=== PATIENT | female | born 1945 | race Caucasian/White ===

== ENCOUNTER 2016-10-08 18:02 | Emergency (ER) | payer MEDICARE ==
--- NOTE | 2016-10-08 19:51 | ED ---
Lower Extremity - HPI Summary HPI Summary: Patient presents with right calf pain for the past two days. She denies known trauma. No history of blood clots. No SOB, CP, warmth or swelling. The calf is tender to the touch. - History of Current Complaint Chief Complaint: EDExtremityLower Stated Complaint: RIGHT CALF PAIN Time Seen by Provider: 10/08/16 19:29 Hx Obtained From: Patient Mechanism Of Injury: Unknown Onset of Pain: Days - 2 Onset/Duration: Days - 2 Severity Initially: Mild Severity Currently: Mild Pain Intensity: 1 Timing: Intermittent - variable Location: Is Discrete @ - right calf Character Of Pain: Aching, Stiffness Associated Signs And Symptoms: Positive: Negative Aggravating Factor(s): Standing, Movement Alleviating Factor(s): Nothing Able to Bear Weight: Yes - with mild discomfort - Allergies/Home Medications Allergies/Adverse Reactions: Allergies Allergy/AdvReac Type Severity Reaction Status Date / Time No Known Allergies Allergy Verified 10/08/16 19:36 PMH/Surg Hx/FS Hx/Imm Hx Previously Healthy: Yes Musculoskeletal History: Denies: Hx Rheumatoid Arthritis, Hx Osteoporosis - Cancer History Hx Chemotherapy: No Hx Radiation Therapy: No - Surgical History Surgery Procedure, Year, and Place: 1969 left breast surgeries, 89 right breast , kidney stones, Infectious Disease History: No Infectious Disease History: Denies: Traveled Outside the [place] in Last 30 Days - Social History Occupation: Employed Full-time Lives: With Family Alcohol Use: None Substance Use Type: Reports: None Smoking Status (MU): Never Smoked Tobacco Review of Systems Negative: Fever, Chills Positive: Myalgia. Negative: Edema Negative: Bruising Negative: Paresthesia, Numbness All Other Systems Reviewed And Are Negative: Yes Physical Exam Triage Information Reviewed: Yes Vital Signs On Initial Exam: Initial Vitals Temp Pulse Resp BP Pulse Ox 98.5 F 64 16 189/65 97 10/08/16 18:27 10/08/16 18:27 10/08/16 18:27 10/08/16 18:27 10/08/16 18:27 Vital Signs Reviewed: Yes Appearance: Positive: Well-Appearing, Pain Distress, Obese Skin: Positive: Warm, Skin Color Reflects Adequate Perfusion, Dry, Soft Head/Face: Positive: Normal Head/Face Inspection Eyes: Positive: EOMI, TODD, Conjunctiva Clear ENT: Positive: Hearing grossly normal Respiratory/Lung Sounds: Positive: Breath Sounds Present Cardiovascular: Positive: RRR Musculoskeletal: Positive: Strength/ROM Intact, Pain @ - TTP right calf. Negative: Edema Right Neurological: Positive: Sensory/Motor Intact, Alert, Oriented to Person Place, Time, NV Bundle Intact Distally Psychiatric: Positive: Affect/Mood Appropriate AVPU Assessment: Alert Diagnostics - Vital Signs Vital Signs Temp Pulse Resp BP Pulse Ox 10/08/16 18:34 97.8 F 60 20 189/65 100 10/08/16 18:27 98.5 F 64 16 189/65 97 - Laboratory Lab Statement: Any lab studies that have been ordered have been reviewed, and results considered in the medical decision making process. - Ultrasound No standard instances Ultrasound Interpretation: No Acute Changes Ultrasound Interpretation Completed By: Radiologist Lower Extremity Course/Dx - Diagnoses Differential Diagnosis/HQI/PQRI: Positive: Arthritis, Bursitis, Cellulitis, Contusion, DVT, Infection, Phlebitis, Sprain, Strain Provider Diagnoses: Right calf pain Discharge - Discharge Plan Condition: Stable Disposition: HOME Patient Education Materials: Musculoskeletal Pain (ED) Referrals: Marilyn Figueredo MD [Primary Care Provider] - Additional Instructions: Please follow-up with your primary care provider if your symptoms do not begin to improve in the next 3-5 days. Return to the emergency department if symptoms worsen.
--- NOTE | 2016-10-08 20:23 | RAD ---
Indication: Right leg edema. Duplex Doppler sonography of the deep venous system of the right lower extremity deep venous system was performed. Bilaterally the common femoral veins appear patent and compressible. Right proximal greater saphenous vein, proximal deep femoral vein, femoral vein, popliteal vein, posterior tibial veins and peroneal veins appear patent and compressible. IMPRESSION: NO EVIDENCE OF DEEP VENOUS THROMBOSIS IS IDENTIFIED.
[2016-10-08 20:51] VITALS: BP 176/80
== END 2016-10-08 20:50 | disposition home or self-care (01) ==
LOC: ED 18:02
DX: M79.661 Pain in right lower leg (principal)
CPT/HCPCS: 99282

== ENCOUNTER 2017-07-01 13:14 | Emergency (ER) | payer MEDICARE ==
[2017-07-01] MEDS ORDERED: Ondansetron INJ* 2 MG/ML VIAL IV ONE (13:44)
[2017-07-01] MEDS ORDERED: NS 0.9% 1000 ML* 1,000 ML IV ONE (13:45)
[2017-07-01 14:02] LABS: Urine Appearance Cloudy; Urine Blood 3+ (Negative); Urine Color Yellow; Urine Ketones 1+ (Negative); Urine Protein 1+(30 mg/dL) (Negative); Urine Specific Gravity 1.015 (1.010-1.030); Urine Urobilinogen Negative (Negative)
[2017-07-01 14:31] LABS: ABS Basophils 0.1 10^3/ul (0-0.2); ABS Eosinophils 0.1 10^3/ul (0-0.6); ABS Lymphocytes 1.1 10^3/ul (1.0-4.8); ABS Monocytes 0.8 10^3/ul (0-0.8); ABS Neutrophils 7.9 10^3/ul (1.5-7.7); ABS Nucleated RBC 0 10^3/ul; Eosinophil % 0.5 % (0-6); Hematocrit 39 % (35-47); Hemoglobin 13.5 g/dl (12.0-16.0); Lymphocyte % 11.4 % (25-47); Mean Corpuscular HGB Conc 34 g/dl (31-36); Mean Corpuscular Hemoglobin 30 pg (27-31); Mean Corpuscular Volume 88 fL (80-97); Mean Platelet Volume 8 um3 (7.4-10.4); Nucleated Red Blood Cells % 0; Platelet Count 264 10^3/ul (150-450); Red Blood Count 4.48 10^6/ul (4.0-5.4); Red Cell Distribution Width 13 % (10.5-15)
[2017-07-01 14:39] LABS: EGFR Non-African American 70.9 (>60)
--- NOTE | 2017-07-01 15:18 | RAD ---
CLINICAL HISTORY: Hematuria, left-sided flank pain COMPARISON: September 11, 2004 TECHNIQUE: Multiple contiguous axial CT scans were obtained of the abdomen and pelvis, without intravenous contrast enhancement. Coronal and sagittal multiplanar reformations are submitted for review. Oral contrast was not administered. FINDINGS: The study is limited by the lack of intravenous contrast. This limits evaluation of the solid organs and vasculature. LUNG BASES: The lung bases are clear. LIVER: There are low-attenuation lesions of the liver most consistent with simple hepatic cysts, measuring up to 0.8 cm in size. BILE DUCTS: There is no intrahepatic or extrahepatic biliary dilatation. GALLBLADDER: The gallbladder is normal, without pericholecystic inflammatory change. PANCREAS: The pancreas is normal, without mass or ductal dilatation. SPLEEN: Normal in size and appearance. UPPER GI TRACT: Evaluation of the gastrointestinal tract is limited by incomplete gastric distention. The upper GI tract is unremarkable. SMALL BOWEL AND MESENTERY: The small bowel is normal in contour, course, and caliber. There is no obstruction or dilatation. COLON: There are multiple diverticula of the sigmoid colon. There is no pericolonic inflammatory change. ADRENALS: Normal bilaterally. KIDNEYS: There are simple cysts of the left kidney. There are punctate right renal calyceal stones. There is a 0.3 cm calculus of the distal left ureter best seen on coronal image 59 and axial image 70. There is mild hydroureter. BLADDER: The bladder is incompletely distended but is grossly normal. PELVIC ORGANS: The uterus is fibroid. AORTA: There is mild calcific atherosclerotic disease of the abdominal aorta and its branches, without aneurysmal dilatation IVC: Unremarkable LYMPH NODES: There is no lymphadenopathy by size criteria. ABDOMINAL WALL: There is no evidence for abdominal wall hernia. BONES AND SOFT TISSUES: Degenerative changes are noted OTHER: None IMPRESSION: 1. BILATERAL NEPHROLITHIASIS, INCLUDING A 0.3 CM DISTAL LEFT URETERAL CALCULUS. THERE IS MILD HYDROURETER ON THE LEFT. 2. DIVERTICULOSIS. 3. FIBROID UTERUS
--- NOTE | 2017-07-01 16:19 | ED ---
Austin Pineda Jennifer, scribed for Johnie Matos MD on 07/01/17 at 1334 . GI/ HPI - History of Current Complaint Stated Complaint: PELVIC PAIN, BLOOD IN URINE Onset/Duration: Started Hours Ago - 2 hours ago, Still Present, Worse Since Timing: Constant Severity: Mild Current Severity: Mild Pain Intensity: 0 Location of Pain: Groin Pain Characteristics: Pressure Associated Signs and Symptoms: Positive: Nausea, Vomiting, Hematuria, UTI Symptoms, Other: - Pelvic pain. Negative: Fever, Flank Pain Aggravating Factor(s): Nothing Alleviating Factor(s): Nothing - Allergy/Home Medications Allergies/Adverse Reactions: Allergies Allergy/AdvReac Type Severity Reaction Status Date / Time No Known Allergies Allergy Verified 10/08/16 19:36 PMH/Surg Hx/FS Hx/Imm Hx Endocrine/Hematology History: Reports: Other Endocrine/Hematological Disorders - Prediabetes Cardiovascular History: Denies: Hx Hypertension History: Reports: Hx Kidney Stones Musculoskeletal History: Denies: Hx Rheumatoid Arthritis, Hx Osteoporosis EENT History: Denies: Hx Deafness - Cancer History Hx Chemotherapy: No Hx Radiation Therapy: No - Surgical History Surgery Procedure, Year, and Place: 1969 left breast surgeries, 90 right breast , kidney stones, Infectious Disease History: No Infectious Disease History: Denies: Traveled Outside the [place] in Last 30 Days - Family History Known Family History: Positive: Diabetes - Social History Alcohol Use: None Substance Use Type: Reports: None Smoking Status (MU): Never Smoked Tobacco Review of Systems Negative: Fever, Chills Genitourinary: Other - Hematuria, Pelvic Pain Negative: flank pain All Other Systems Reviewed And Are Negative: Yes Physical Exam - Summary Physical Exam Summary: ppearance: Well-appearing, Well-nourished Skin: Warm, Dry, No rash Eyes: Normal, PERRL, EOMI, sclera anicteric ENT: Normal Neck: Supple, nontender Respiratory: Clear to auscultation Cardiovascular: S1, S2, no murmur, no rub, no gallop Abdomen: LLQ pain, Soft, no organomegaly Bowel sounds: Present Musculoskeletal: Normal, Strength/ROM Intact, no edema, pulses symmetrical Neurological: Normal, A&Ox3, cranial nerves II-XII WNL, follows commands, gait not tested, sensation intact to pin and light touch Psychiatric: affect normal, behavior appropriate, dressed appropriately, judgment intact Triage Information Reviewed: Yes Vital Signs On Initial Exam: Initial Vitals Temp Pulse Resp BP Pulse Ox 97.3 F 60 18 196/79 99 07/01/17 13:25 07/01/17 13:25 07/01/17 13:25 07/01/17 13:25 07/01/17 13:25 Vital Signs Reviewed: Yes Diagnostics - Vital Signs Vital Signs Temp Pulse Resp BP Pulse Ox 07/01/17 13:25 97.3 F 60 18 196/79 99 - Laboratory Result Diagrams: 07/01/17 13:55 07/01/17 13:55 Lab Statement: Any lab studies that have been ordered have been reviewed, and results considered in the medical decision making process. - CT CT Abd/Pel CT Interpretation: Positive (See Comments) - 1. BILATERAL NEPHROLITHIASIS, INCLUDING A 0.3 CM DISTAL LEFT URETERAL CALCULUS. THERE IS MILD HYDROURETER ON THE LEFT. 2. DIVERTICULOSIS. 3. FIBROID UTERUS. Dr. Matos has reviewed this report. CT Interpretation Completed By: Radiologist GIGU Course/Dx - Course Assessment/Plan: The patient is a 72 year old female who presents to the ED with hematuria and pelvic pain that began this morning at 11:00. In the ED course the patient was given IV fluids and Zofran. Bloodwork and Urinalysis were obtained. The patient is diagnosed with left distal ureter 3mm stone. The patient is instructed to follow up with dipika Beeist. - Diagnoses Provider Diagnoses: left distal ureter 3mm stone - Physician Notifications Discussed Care Of Patient With: Misael Schneider Time Discussed With Above Provider: 15:30 Instructed by Provider To: Other - Notified dipika Beeist, that the patient will be discharged from the ED. Discharge - Discharge Plan Condition: Stable Disposition: HOME Referrals: Misael Schneider MD [Medical Doctor] - 3 Days Additional Instructions: Follow up with dipika Beeist, in three days. RETURN TO THE EMERGENCY DEPARTMENT FOR CHANGING OR WORSENING SYMPTOMS. The documentation as recorded by the Austin resendez Jennifer accurately reflects the service I personally performed and the decisions made by , Johnie Matos MD.
[2017-07-01 16:30] VITALS: BP 178/61
--- NOTE | 2017-07-04 08:56 | PN ---
Progress Note - Progress Note Date of Service: 07/01/17 Note: Urine culture grew Escherichia coli over 100,000. Patient was not placed on antibiotics prior to discharge. Organism is sensitive to Augmentin Patient is called at 8:50 AM to make aware Augmentin sent to pharmacy Nothing further at this time. Maddi Donato PA-C
== END 2017-07-01 16:28 | disposition home or self-care (01) ==
LOC: ED 13:14
DX: N20.1 Calculus of ureter (principal); N20.0 Calculus of kidney; D25.9 Leiomyoma of uterus, unspecified; A49.8 Other bacterial infections of unspecified site
CPT/HCPCS: 36415; 74176; 80053; 81003; 81015; 85025; 87077; 87086; 87186; 96360; 96374; 99283; J2405

== ENCOUNTER 2023-12-29 16:11 | Observation (INO) ==
[2023-12-29 17:22] LABS: ABS Basophils 0.1 10^3/uL (0.0-0.1); ABS Eosinophils 0.1 10^3/uL (0.0-0.5); ABS Lymphocytes 0.6 10^3/uL (1.0-4.8); ABS Monocytes 1.2 10^3/uL (0.0-0.9); Eosinophil % 0.6 %; Hematocrit 39.5 % (35-45); Hemoglobin 13.5 g/dL (11.5-14.3); Lymphocyte % 4.6 %; Mean Corpuscular Hgb Conc 34.1 g/dL (31-36); Mean Corpuscular Volume 87.9 fL (80-97); Mean Platelet Volume 7.8 fL (7.5-11.2); Platelet Count 307 10^3/uL (150-450); Red Cell Distribution Width 13.7 % (12-17)
[2023-12-29 17:26] LABS: INR 1.16 (0.83-1.13)
[2023-12-29 17:59] LABS: Albumin 4.1 g/dL (3.2-5.2); Albumin/Globulin Ratio 1.5 (1-3); C Reactive Protein 41.36 mg/L (<8.01); Calcium 9.5 mg/dL (8.6-10.3); Creatinine, Serum 0.87 mg/dL (0.51-0.95); Globulin 2.7 g/dL (2-4); Potassium 2.9 mmol/L (3.5-5.0); Total Bilirubin 0.7 mg/dL (0.2-1.0); Total Protein 6.8 g/dL (6.4-8.9)
[2023-12-29 18:27] LABS: Urine Appearance Turbid; Urine Bilirubin Negative (Negative); Urine Blood 1+ (Negative); Urine Color Light-Yellow; Urine Glucose Negative (Negative); Urine Ketones Trace (Negative); Urine Nitrite Negative (Negative); Urine Protein 1+ (>=30 mg/dL) (Negative); Urine Specific Gravity 1.015 (1.002-1.030); Urine Urobilinogen Negative (Negative); Urine pH 6.5 (5.0-8.0)
[2023-12-29 18:39] LABS: Urine Bacteria 1+ /HPF (Absent); Urine Red Blood Cell 3+(>10/hpf) /HPF (0-Trace); Urine Squamous Epithelial Cell Present /HPF (Absent); Urine White Blood Cell 3+(>20/hpf) /HPF (0-Trace)
[2023-12-29] MEDS: Lactated Ringers SEPSIS* BAG 1,570 ML IV ONE (19:26)
[2023-12-29] MEDS: Potassium Chlor 20 meq TAB.ER PO ONE (19:27)
[2023-12-29] MEDS: cefTRIAXone 1 gm/50 mL D5W 1 GM/50 ML BAG IV ONE (19:27)
[2023-12-29] MEDS ORDERED: Dextrose 50% Syringe 50 ml 25 GM/50 ML SYRINGE IV PUSH PRN (22:45)
[2023-12-30] MEDS: Enoxaparin 40 MG/0.4 ML SYR SUBCUT SCH (00:29)
[2023-12-30 06:07] LABS: ABS Basophils 0.1 10^3/uL (0.0-0.1); ABS Lymphocytes 0.8 10^3/uL (1.0-4.8); ABS Monocytes 1.4 10^3/uL (0.0-0.9); ABS Neutrophils 8.7 10^3/uL (1.5-7.6); Eosinophil % 0.3 %; Hematocrit 35.1 % (35-45); Hemoglobin 12.2 g/dL (11.5-14.3); Lymphocyte % 7.1 %; Mean Corpuscular Hemoglobin 30.3 pg (27-33); Mean Corpuscular Hgb Conc 34.7 g/dL (31-36); Mean Corpuscular Volume 87.2 fL (80-97); Mean Platelet Volume 7.6 fL (7.5-11.2); Platelet Count 254 10^3/uL (150-450); Red Blood Count 4.03 10^6/uL (3.63-4.92); Red Cell Distribution Width 13.6 % (12-17); White Blood Count 10.9 10^3/uL (3.8-11.8)
[2023-12-30 06:55] LABS: Calcium 8.6 mg/dL (8.6-10.3); Creatinine, Serum 0.84 mg/dL (0.51-0.95); Potassium 2.7 mmol/L (3.5-5.0)
[2023-12-30] MEDS: KCL 20 MEQ/100 ML IVPREMIX 20 MEQ/100 ML BAG IV SCH ×2 (07:51→21:43)
[2023-12-30 19:00] LABS: Calcium 8.6 mg/dL (8.6-10.3); Creatinine, Serum 0.8 mg/dL (0.51-0.95); eGFR CKD-EPI 76.3 (>60)
[2023-12-30] MEDS: cefTRIAXone 1 gm/50 mL D5W 1 GM/50 ML BAG IV SCH (20:34)
[2023-12-31 08:18] LABS: ABS Basophils 0.1 10^3/uL (0.0-0.1); ABS Eosinophils 0.2 10^3/uL (0.0-0.5); ABS Lymphocytes 1.1 10^3/uL (1.0-4.8); ABS Monocytes 1.2 10^3/uL (0.0-0.9); ABS Neutrophils 6.3 10^3/uL (1.5-7.6); Eosinophil % 2.2 %; Hematocrit 37.6 % (35-45); Hemoglobin 13.2 g/dL (11.5-14.3); Lymphocyte % 12.5 %; Mean Corpuscular Hemoglobin 30.7 pg (27-33); Mean Corpuscular Volume 87.8 fL (80-97); Mean Platelet Volume 8.1 fL (7.5-11.2); Platelet Count 249 10^3/uL (150-450); Red Blood Count 4.28 10^6/uL (3.63-4.92); Red Cell Distribution Width 13.5 % (12-17); White Blood Count 8.9 10^3/uL (3.8-11.8)
[2023-12-31 08:44] LABS: Calcium 8.6 mg/dL (8.6-10.3); Creatinine, Serum 0.71 mg/dL (0.51-0.95); Magnesium 1.6 mg/dL (1.9-2.7); Potassium 3.3 mmol/L (3.5-5.0); eGFR CKD-EPI 88.1 (>60)
[2023-12-31] MEDS: Magnesium Sulfate 2 gm BAG 2 GM/50 ML BAG IVPB ONE (12:11)
[2023-12-31] MEDS: KCL 20 MEQ/100 ML IVPREMIX 20 MEQ/100 ML BAG IV SCH (13:49)
[2023-12-31 15:33] LABS: Calcium 8.6 mg/dL (8.6-10.3); Creatinine, Serum 0.66 mg/dL (0.51-0.95); Magnesium 1.7 mg/dL (1.9-2.7); Potassium 3.3 mmol/L (3.5-5.0); eGFR CKD-EPI 90.9 (>60)
[2023-12-31] MEDS: Sulfamethox/Trimethoprim DS TAB 800/160 mg PO ONE (17:22)
[2023-12-31] MEDS: Potassium Chlor 20 meq TAB.ER PO ONE (17:22)
[2023-12-31 17:42] VITALS: BP 133/64
[2024-01-02 09:58] LABS: Cytomegalovirus IgG Antibody Negative (Negative)
[2024-01-02 22:57] LABS: Anaplasma phagocytophilum Negative (Negative); B. miyamotoi PCR, B Negative (Negative); Babesia divergens/MO-1 Negative (Negative); Babesia ducani Negative (Negative); Ehrlichia chaffeensis Negative (Negative); Ehrlichia ewingii/canis Negative (Negative); Ehrlichia muris eauclairensis Negative (Negative)
[2024-01-04 16:42] LABS: IgG Immunoblot Negative (Negative); IgM Immunoblot Negative (Negative)
== END 2023-12-31 18:55 | disposition home or self-care (01) ==
LOC: EDHOLD 16:11 → ED 16:11 → MED 12-30 14:05
PROVIDERS: ADMIT Internal Medicine; ATTEND Internal Medicine